=== PATIENT | female | born 1980 | race Two or more races ===

== ENCOUNTER 2017-01-09 20:21 | Inpatient (IN) | payer BC ==
--- NOTE | ~2017-01-09 | DS ---
Discharge Summary [facility] [address] [place]. [address] NAME: TRENT AVILA : 80 STATUS : DIS IN PAT#: [id number] AGE: 36 ADM/REG DATE : 01/09/17 MR#: [id number] REPORT SERV DATE: 01/14/17 DICTATED BY: SAM MCKNIGHT DATE: 01/13/17 REPORT STATUS : Draft TRANSCRIBED BY: MODL DATE: 01/13/17 ADMISSION DATE: 01/09/2017 DISCHARGE DATE: 01/13/2017 CONDITION ON DISCHARGE: Stable. DISPOSITION: Discharged to home. ADVICE ON DISCHARGE: The patient to follow up with PCP in the next one to two weeks and with pain specialist in the next three to five days. DIAGNOSES ON DISCHARGE: Include the following: The patient was actually transferred from [facility] in [place] on 01/09/2017. She was transferred for an abnormal chest CT to rule out esophageal perforation versus mediastinal abscess. The patient did undergo an esophagogram, which showed that the patient had a large distal esophageal diverticulum in the thoracic esophagus, but there was no extravasation of contrast. So there was no suggestion of any mediastinal abscess at this time. There was no suggestion of any esophageal perforation either. The abnormal chest CT was probably secondary to the large diverticulum that was seen on the distal esophagus. Severe intractable abdominal pain with nausea, vomiting, this has resolved, but the patient is positive for Clostridium difficile. Her stool came back positive for Clostridium difficile toxin on 01/12/2017, which is the reason her discharge was held. Surprisingly however, the patient is having very few bowel movements and out of the two or three bowel movements she has, most of them are even formed and there is no significant diarrhea. However, as her stool came back positive for Clostridium difficile, we will treat her with two weeks course of vancomycin p.o. Fever with elevated procalcitonin, this has resolved. Autoimmune hepatitis and cirrhosis, this is chronic and stable. 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 This is stable. Chronic narcotic dependence. BRIEF HOSPITAL COURSE: After I took over this patient, I had this patient on 01/12/2017. By then, the patient's symptoms had almost resolved. The patient denied any nausea, vomiting, abdominal pain, and was able to tolerate food and was ambulating. The patient of course has multiple comorbidities and the most severe ones are her collagen vascular diseases that include rheumatoid arthritis, lupus, and mixed connective tissue disease that has left her fairly significantly debilitated. The patient does have the classic butterfly rash on the face and classic chronic vasculitis and severe eczema of both legs. The patient also has Discharge Summary [address] [place]. [address] NAME: TRENT AVILA : 80 STATUS : DIS IN PAT#: [id number] AGE: 36 ADM/REG DATE : 01/09/17 MR#: [id number] REPORT SERV DATE: 01/14/17 DICTATED BY: SAM MCKNIGHT DATE: 01/13/17 REPORT STATUS : Draft TRANSCRIBED BY: VIOLET DATE: 01/13/17 deformities in both hands and both her legs given the rheumatoid arthritis, which she was diagnosed at a very young age. The patient did well after I took over her care and did not have any abdominal pain, nausea, or vomiting, but she did have two to three bowel movements a day that were loose. Because of this, the gastroenterology nurse practitioner, Can sent her stool off for C. diff, which I agreed. Her stool came back positive for C. diff and treatment with p.o. vancomycin was started on 01/12/2017. She has tolerated the p.o. vancomycin really well so far. Hence, the plan is to discharge the patient on 01/13/2017 with the following medications: 1. Vancomycin 125 mg p.o. q.6 hours for the next 14 days. A prescription for this has been given and compliance has been stressed. 2. The patient will go back on her regular home medications and this will include methylprednisolone 4 mg tablets once a day, Dilaudid 4 mg every six hours p.r.n. for pain, the patient will contact her primary care/pain specialist for ongoing prescriptions on these. 3. Phenergan 25 mg p.r. every six hours p.r.n. 4. Maxalt 10 mg p.o. p.r.n. I do have the following most recent and relevant labs this patient. On the day of discharge, her CBC shows a WBC count of 5.7, hemoglobin 9.8, hematocrit 30.1 which is probably secondary to chronic malnutrition and iron deficiency and anemia of chronic disease. Platelet count is 72, which stays low all the time because of chronic thrombocytopenia that the patient has from autoimmune disease and other factors as mentioned above. Her electrolyte profile shows sodium 143, potassium of 3.3, which will be repleted, BUN 9, creatinine of 0.6. Blood cultures have come back with no growth. Other than the positive blood culture out of two that was collected on 01/09/2017 that shows probable contamination with growth of diphtheroid-like organisms which are not significant. Her stool studies of course came back positive for C. diff for which she is being treated. However, Giardia is negative. Cryptosporidium is negative. Hepatic function profile at this time shows a total protein of 5.4, albumin 2.8, which is low from chronic malnutrition, direct bilirubin is 0.9, total bilirubin 1.6. Alkaline phosphatase 155 which is slightly elevated, but ALT and AST are 6 in 10. It is to be noted that the patient does have autoimmune hepatitis and cirrhosis of the liver. Her chest x-ray on 01/10/2017 showed large esophageal diverticulum extending from the distal esophagus. Otherwise, clear lungs. Her barium swallow/esophagogram showed no extravasation of contrast and no esophageal perforation, but does show a large esophageal diverticulum as mentioned above. Lactate levels were normal at 0.5. Hence, at this time, the patient is being sent home in stable condition. Also other studies that she has had at this time include also an MRI of the abdomen without contrast that showed essentially the patient is status post cholecystectomy, Discharge Summary [address] [address] NAME: TRENT AVILA : 80 STATUS : DIS IN PAT#: [id number] AGE: 36 ADM/REG DATE : 01/09/17 MR#: [id number] REPORT SERV DATE: 01/14/17 DICTATED BY: SAM MCKNIGHT DATE: 01/13/17 REPORT STATUS : Draft TRANSCRIBED BY: MODL DATE: 01/13/17 hepatic cirrhosis, and loculated perihepatic free fluid. The patient also has a left and stable para-aortic enlarged lymph node, which is probably secondary to all her autoimmune problems. The patient also actually underwent an EGD by Dr. Urbina. This was an upper endoscopy for epigastric pain and for cirrhosis, and upper endoscopy showed that the patient had the following findings. First of all, she had a normal first part of the duodenum, normal antrum, and did have normal esophagus, but did have diverticulum in the upper third of the esophagus. The patient also has portal hypertensive gastropathy that was detected on EGD. However, at this time the patient is not actively bleeding. Hence, she is being sent home with the above medications and I have spent about 40 minutes in coordinating discharge care of this patient including [id number] encounter and summarizing this discharge. CALOS/VIOLET Sam Mcknight M.D. / [id number] CC: Chikis Young NP
[~2017-01-09 20:21] MED LIST: ALEVE220 MG PO; ARICEPT10 PO; ASAB PO; B COMPLETE OR; B121000P IM; BENLYSTA; BENLYSTA IJ; BENLYSTA400 MG IV; CALCIUM; CIP2 PO; CYTOXAN1 GM IJ; CYTOXAN1 GM IV; CYTOXAN500 MG IJ; DIL2TAB PO; DIL4TAB PO; DOMPERIDONE; DOMPERIDONE PO; DURICEF PO; EMERGEN C PO; EVENING OR; EVENING PO; EVENING PRIMROSE OIL; EVENING PRIMROSE PO; FERROUS SULF325 M1 PO; FIBER FORCE PO; FLORASTOR250 MG PO; GERITOL PO; K-TABS10 MEQ PO; KADIAN10 MG PO; KADIANSR30 PO; KLOR-CON 1010 MEQ PO; KLOR-CON M2020 MEQ PO; L-LYSINE HCL500 MG OR; L-LYSINE PO; L40 PO; LYSINE1000 MG OR; MAX25 PO; MAXALT10 MG PO; MAXALTODT1 PO; MEDROL PO; MEDROL4 PO; MEDROL8 MG PO; MIRALAXPKT PO; MORPHINE 30 MG PO; MSCONTIN PO; MULT VIT; MULTIPLE VIT PO; MULTIVIT/MIN PO; MULTIVITAMI1 PO; NAMENXR14 PO; OMNICEF300 PO; ORENCIA; PLAQ200B PO; PR25R PR; PRILO PO; PRILOSEC40 MG PO; PROTEIN SHAKE PO; PROTONIX PO; RECLAST IV; RIFADIN150 MG PO; RIFAMPIN PO; SPIRO25 PO; VITAMIN B PO; VITAMIN D PO; VITAMIN D2000 UNIT PO; VITAMIN D31000 UNIT PO; [UNRECOGNIZED DRUG - CODE] PO; [UNRECOGNIZED DRUG - OTHER]; [UNRECOGNIZED DRUG - OTHER] PO; [UNRECOGNIZED DRUG - OTHER] PO
[2017-01-10 08:41] LABS: HEMATOCRIT 29.8 % (36.0-48.0); HEMOGLOBIN 9.8 g/dL (12.0-16.0); MEAN CORPUSCULAR HEMOGLOB 26.5 pg (26.0-34.0); PLATELET COUNT 69 10/3/uL (150-400); RBC DISTRIBUTION WIDTH 15.2 % (12.0-16.0)
[2017-01-10 08:42] LABS: MANUAL DIFF YES %; MEAN CORPUS HGB CONC 32.9 g/dL (32.0-36.0); MEAN CORPUSCULAR VOLUME 80.5 fL (80-100)
[2017-01-10 09:03] LABS: ALBUMIN 2.6 G/DL (3.5-5.0); CALCIUM, SERUM 7.5 MG/DL (8.5-10.4); CHLORIDE, SERUM 109 MMOL/L (96-112); CREATININE 0.53 MG/DL (0.55-1.02); DIRECT BILIRUBIN 1.7 MG/DL (0.0-0.4); GFR AFRICAN AMERICAN 142 ML/MIN (>=60); GFR NON AFRICAN AMERICAN 122 ML/MIN (>=60); GLUCOSE, SERUM 78 MG/DL (60-99); POTASSIUM, SERUM 4.3 MMOL/L (3.5-5.3); SGOT(AST) 15 U/L (5-40); SGPT(ALT) 9 U/L (5-65); SODIUM, SERUM 142 MMOL/L (135-148); TOTAL PROTEIN 5.4 G/DL (6.0-8.5)
[2017-01-10 09:07] LABS: BAND NEUTROPHILS 16 %; HYPOCHROMIA 1+ (3-10/OIF) (0-2/OIF); LYMPHOCYTES 14 %; MONOCYTES 2 %; PLATELET ESTIMATE DEC (ADEQUATE); SEGMENTED NEUTROPHIL (0) 68 %; TOTAL NUCLEATED CELLS 100
[2017-01-10 09:08] LABS: ALKALINE PHOSPHATASE 165 U/L (45-117); BUN (BLOOD UREA NITROGEN) 14 MG/DL (6-23); CO2 (CARBON DIOXIDE) 19 MMOL/L (24-34); INDIRECT BILIRUBIN(NOT ORDER) 1.2 MG/DL (0.1-0.9); PHOSPHORUS, SERUM 4.4 MG/DL (2.5-4.5); TOTAL BILIRUBIN 2.9 MG/DL (0-1.2)
[2017-01-10 09:09] LABS: OVALOCYTES 1+ (3-10/OIF) (0-2/OIF); TEARDROP SHAPED RBCS FEW (3-10/OIF)
[2017-01-10 09:10] LABS: BURR CELLS 1+ (3-10/OIF) (0-2/OIF)
[2017-01-10 10:05] LABS: PROCALCITONIN 0.32 ng/mL (<0.5)
[2017-01-11 04:37] LABS: BASOPHILS 0.2 %; BASOPHILS ABSOLUTE 0.01 10/3/uL (0.0-0.16); EOSINOPHILS 1.9 %; EOSINOPHILS ABSOLUTE 0.09 10/3/uL (0.0-0.53); HEMATOCRIT 29.2 % (36.0-48.0); HEMOGLOBIN 9.7 g/dL (12.0-16.0); IMMATURE GRANULOCYTES 0.8 %; IMMATURE GRANULOCYTES ABSOLUTE 0.04 10/3/uL (0.0-0.11); LYMPHOCYTES 18.3 %; LYMPHOCYTES ABSOLUTE 0.88 10/3/uL (0.67-4.30); MEAN CORPUS HGB CONC 33.2 g/dL (32.0-36.0); MEAN CORPUSCULAR HEMOGLOB 26.6 pg (26.0-34.0); MEAN CORPUSCULAR VOLUME 80.2 fL (80-100); MEAN PLATELET VOLUME 10.4 fL (9.2-13.0); MONOCYTES 6.9 %; MONOCYTES ABSOLUTE 0.33 10/3/uL (0.21-1.20); NEUTROPHILS 71.9 %; NEUTROPHILS ABSOLUTE 3.46 10/3/uL (2.02-8.40); PLATELET COUNT 80 10/3/uL (150-400); RBC DISTRIBUTION WIDTH 15.2 % (12.0-16.0); RED CELL COUNT 3.64 10/6/uL (4.0-5.6); WHITE BLOOD CELLS 4.8 10/3/uL (4.5-10.5)
[2017-01-11 04:38] LABS: MANUAL DIFF NO %
[2017-01-11 04:49] LABS: BUN (BLOOD UREA NITROGEN) 14 MG/DL (6-23); CALCIUM, SERUM 8.4 MG/DL (8.5-10.4); CHLORIDE, SERUM 107 MMOL/L (96-112); CO2 (CARBON DIOXIDE) 20 MMOL/L (24-34); CREATININE 0.76 MG/DL (0.55-1.02); GFR AFRICAN AMERICAN 117 ML/MIN (>=60); GFR NON AFRICAN AMERICAN 101 ML/MIN (>=60); POTASSIUM, SERUM 3.7 MMOL/L (3.5-5.3); SODIUM, SERUM 141 MMOL/L (135-148)
[2017-01-11 04:51] LABS: GLUCOSE, SERUM 97 MG/DL (60-99)
[2017-01-11 05:05] LABS: PLATELET ESTIMATE DEC (ADEQUATE)
[2017-01-11 05:06] LABS: BURR CELLS 1+ (3-10/OIF) (0-2/OIF); OVALOCYTES 1+ (3-10/OIF) (0-2/OIF); POIKILOCYTOSIS 1+ (5-10/OIF) (0-5/OIF); TEARDROP SHAPED RBCS OCC (0-2/OIF)
[2017-01-12 04:43] LABS: BASOPHILS 0.4 %; BASOPHILS ABSOLUTE 0.01 10/3/uL (0.0-0.16); EOSINOPHILS 2.3 %; EOSINOPHILS ABSOLUTE 0.06 10/3/uL (0.0-0.53); HEMATOCRIT 27.9 % (36.0-48.0); IMMATURE GRANULOCYTES 1.1 %; IMMATURE GRANULOCYTES ABSOLUTE 0.03 10/3/uL (0.0-0.11); LYMPHOCYTES 29.5 %; LYMPHOCYTES ABSOLUTE 0.77 10/3/uL (0.67-4.30); MEAN CORPUS HGB CONC 32.3 g/dL (32.0-36.0); MEAN CORPUSCULAR HEMOGLOB 26.2 pg (26.0-34.0); MEAN CORPUSCULAR VOLUME 81.1 fL (80-100); MONOCYTES 11.5 %; NEUTROPHILS 55.2 %; NEUTROPHILS ABSOLUTE 1.44 10/3/uL (2.02-8.40); PLATELET COUNT 68 10/3/uL (150-400); RBC DISTRIBUTION WIDTH 15.1 % (12.0-16.0); RED CELL COUNT 3.44 10/6/uL (4.0-5.6)
[2017-01-12 04:46] LABS: MANUAL DIFF NO %; WHITE BLOOD CELLS 2.6 10/3/uL (4.5-10.5)
[2017-01-12 04:57] LABS: INTERNATIONAL NORMAL RATI 1.4 UNITS (-); PROTIME (NOT ORD) 17.3 SEC (12.0-14.5)
[2017-01-12 04:58] LABS: ALBUMIN 2.8 G/DL (3.5-5.0); ALKALINE PHOSPHATASE 155 U/L (45-117); CALCIUM, SERUM 8.3 MG/DL (8.5-10.4); CHLORIDE, SERUM 109 MMOL/L (96-112); CO2 (CARBON DIOXIDE) 24 MMOL/L (24-34); CREATININE 0.62 MG/DL (0.55-1.02); GFR AFRICAN AMERICAN 134 ML/MIN (>=60); GFR NON AFRICAN AMERICAN 116 ML/MIN (>=60); GLUCOSE, SERUM 84 MG/DL (60-99); POTASSIUM, SERUM 3.4 MMOL/L (3.5-5.3); SGOT(AST) 10 U/L (5-40); SGPT(ALT) 6 U/L (5-65); SODIUM, SERUM 144 MMOL/L (135-148); TOTAL PROTEIN 5.4 G/DL (6.0-8.5)
[2017-01-12 04:59] LABS: BUN (BLOOD UREA NITROGEN) 10 MG/DL (6-23); DIRECT BILIRUBIN 0.9 MG/DL (0.0-0.4); INDIRECT BILIRUBIN(NOT ORDER) 0.7 MG/DL (0.1-0.9); TOTAL BILIRUBIN 1.6 MG/DL (0-1.2)
[2017-01-12 05:19] LABS: PLATELET ESTIMATE DEC (ADEQUATE)
[2017-01-12 05:20] LABS: TEARDROP SHAPED RBCS FEW (3-10/OIF)
[2017-01-12] MEDS ORDERED: PROTONIX PO (12:15)
[2017-01-13 08:19] LABS: BASOPHILS 0.5 %; BASOPHILS ABSOLUTE 0.03 10/3/uL (0.0-0.16); EOSINOPHILS 1.6 %; EOSINOPHILS ABSOLUTE 0.09 10/3/uL (0.0-0.53); HEMATOCRIT 30.1 % (36.0-48.0); HEMOGLOBIN 9.8 g/dL (12.0-16.0); IMMATURE GRANULOCYTES ABSOLUTE 0.17 10/3/uL (0.0-0.11); LYMPHOCYTES 19.9 %; LYMPHOCYTES ABSOLUTE 1.13 10/3/uL (0.67-4.30); MEAN CORPUS HGB CONC 32.6 g/dL (32.0-36.0); MEAN CORPUSCULAR HEMOGLOB 26.3 pg (26.0-34.0); MEAN CORPUSCULAR VOLUME 80.7 fL (80-100); MONOCYTES 11.6 %; MONOCYTES ABSOLUTE 0.66 10/3/uL (0.21-1.20); NEUTROPHILS 63.4 %; PLATELET COUNT 72 10/3/uL (150-400); RED CELL COUNT 3.73 10/6/uL (4.0-5.6)
[2017-01-13 08:27] LABS: MANUAL DIFF NO %; WHITE BLOOD CELLS 5.7 10/3/uL (4.5-10.5)
[2017-01-13 08:28] LABS: BUN (BLOOD UREA NITROGEN) 9 MG/DL (6-23); CALCIUM, SERUM 8.2 MG/DL (8.5-10.4); CHLORIDE, SERUM 107 MMOL/L (96-112); CO2 (CARBON DIOXIDE) 26 MMOL/L (24-34); GFR AFRICAN AMERICAN 136 ML/MIN (>=60); GFR NON AFRICAN AMERICAN 117 ML/MIN (>=60); GLUCOSE, SERUM 90 MG/DL (60-99); POTASSIUM, SERUM 3.3 MMOL/L (3.5-5.3); SODIUM, SERUM 143 MMOL/L (135-148)
[2017-01-13 08:50] LABS: PLATELET ESTIMATE DEC (ADEQUATE); RBC MORPHOLOGY NORM (NORMAL)
[2017-01-13] MEDS ORDERED: VANCOCIN HCL125 MG PO (09:45)
[2017-02-08] MEDS ORDERED: DIL4TAB PO (21:28)
[2017-02-08] MEDS ORDERED: MEDROL4 PO (21:28)
[2017-02-08] MEDS ORDERED: MAXALTODT1 PO (21:29)
[2017-02-08] MEDS ORDERED: PR25R PR (21:29)
[2017-02-12] MEDS ORDERED: PRILOSEC40 MG (10:10)
[2017-02-12] MEDS ORDERED: PRILOSEC40 MG PO (11:53)
[2017-03-10] MEDS ORDERED: PRILOSEC10 MG (14:15)
[2017-03-10] MEDS ORDERED: SPIRO50 (14:15)
[2017-03-10] MEDS ORDERED: ZOFRAN4 (14:16)
[2017-03-10] MEDS ORDERED: FLUCON1 (14:22)
[2017-05-17] MEDS ORDERED: MAXALTODT1 PO (19:49)
[2017-05-17] MEDS ORDERED: DIL4TAB PO (19:49)
[2017-05-17] MEDS ORDERED: PRILOSEC40 MG PO (19:49)
[2017-05-17] MEDS ORDERED: ZOFRAN ODT4 MG PO (19:50)
[2017-05-23] MEDS ORDERED: SPIRO50 PO (10:19)
[2017-05-23] MEDS ORDERED: L20 PO (10:19)
[2017-05-23] MEDS ORDERED: MEDROL4 PO (10:23)
== END 2017-01-13 11:14 | disposition home or self-care (01) | DRG 392 ==
LOC: 1SO 20:21
PROVIDERS: Internal Medicine; Nurse Practitioner Family
DX: K22.5 Diverticulum of esophagus, acquired (principal); K76.6 Portal hypertension; K74.60 Unspecified cirrhosis of liver; M35.1 Other overlap syndromes; M32.9 Systemic lupus erythematosus, unspecified; M06.9 Rheumatoid arthritis, unspecified; R33.9 Retention of urine, unspecified; K31.89 Other diseases of stomach and duodenum
CPT/HCPCS: 71020; 74220; 80048; 80069; 80076; 82150; 83605; 83735; 84145; 84443; 85025; 85610; 86140; 87045; 87046; 87046-59; 87205; 87328; 87329; 87493; 87493-59; 87899; 87899-59; 89055; A9270-GY; C9113; J1170; J2543; J2550; J2920; J3370